=== PATIENT | male | born 1985 | race Caucasian/White ===

== ENCOUNTER 2021-06-13 05:42 | Emergency (ER) | payer OTHER ==
[2021-06-13 05:52] VITALS: BP 131/82; PULSE 68; TEMP 98.7; BMI 26.6
== END 2021-06-13 06:56 | disposition home or self-care (01) ==
LOC: FER 05:42
DX: S63.501A Unspecified sprain of right wrist, initial encounter (principal); Y99.8 Other external cause status
CPT/HCPCS: 73110-TC-RT-FY; 99283-25

== ENCOUNTER 2021-10-13 04:52 | Emergency (ER) | payer OTHER ==
[2021-10-13 04:59] VITALS: BP 129/59; PULSE 73; TEMP 98.6; BMI 28.0
[2021-10-13] MEDS ORDERED: LIDOCAINE 5% TOPICAL PATCH TP ONE (05:00)
[2021-10-13] MEDS ORDERED: NAPROXEN 500 MG TABLET PO ONE (05:00)
[2021-10-13] MEDS ORDERED: NAPROXEN 500 MG TABLET ONE (05:05)
[2021-10-13] MEDS ORDERED: LIDOCAINE 5% TOPICAL PATCH ONE (05:05)
[2021-10-13] MEDS ORDERED: LIDOCAINE PATCH REMOVAL MC SCH (22:00)
== END 2021-10-13 05:15 | disposition home or self-care (01) ==
LOC: FER 04:52
DX: M62.830 Muscle spasm of back (principal); V49.50XA Passenger injured in collision with unspecified motor vehicles in traffic accident, initial encounter
CPT/HCPCS: 99283-25

== ENCOUNTER 2022-01-07 18:56 | Emergency (ER) | payer OTHER ==
[2022-01-07 19:01] VITALS: BMI 28.0
[2022-01-07 19:06] VITALS: BP 123/71; PULSE 83; TEMP 99.7
[2022-01-07] MEDS ORDERED: ACETAMINOPHEN 500 MG TABLET (FP) PO ONE (19:31)
[2022-01-07] MEDS ORDERED: ACETAMINOPHEN 500 MG TABLET (FP) ONE (19:34)
== END 2022-01-07 19:36 | disposition home or self-care (01) ==
LOC: FER 18:56
DX: S80.212A Abrasion, left knee, initial encounter (principal); S80.211A Abrasion, right knee, initial encounter; W01.0XXA Fall on same level from slipping, tripping and stumbling without subsequent striking against object, initial encounter; Y35.811A Legal intervention involving manhandling, law enforcement official injured, initial encounter
CPT/HCPCS: 99283-25

== ENCOUNTER 2022-01-21 18:04 | Emergency (ER) | payer OTHER ==
[2022-01-21 18:24] VITALS: BP 125/77; PULSE 95; TEMP 98.6; BMI 28.1
== END 2022-01-21 18:55 | disposition home or self-care (01) ==
LOC: FER 18:04
DX: Z77.21 Contact with and (suspected) exposure to potentially hazardous body fluids (principal)
CPT/HCPCS: 99282-25